=== PATIENT | female | born 2000 | race Caucasian/White ===

== ENCOUNTER → 2022-06-09 19:15 | Observation (INO) ==
[2022-06-09 18:11] LABS: Basophils % 0.3 %; Eosinophils % 0.4 %; Hematocrit 31.2 % (35.3-44.9); Hemoglobin 10.3 g/dL (11.5-15.4); Immature Granulocytes % 1.6 % (0-4); Lymphocytes % 18.1 %; Mean Corpuscular Hemoglobin 29.6 pg (28.0-33.3); Mean Corpuscular Volume 89.7 fL (83.0-100.0); Mean Platelet Volume 9.9 fL (9.4-12.4); Monocytes # 0.6 K/mcL (0.0-1.3); Monocytes % 5.5 %; Platelet Count 166 K/mcL (140-400); Red Blood Count 3.48 M/mcL (3.82-4.97); Red Cell Distribution Width 13.2 % (11.5-14.5); Segmented Neutrophils % 74.1 %; White Blood Count 10.8 K/mcL (4.3-11.1)
[2022-06-09 18:17] LABS: Protein/Creatinine Ratio,Urine 0.21 mg/mg (0.00-0.20)
[2022-06-09 18:29] LABS: Alanine Aminotransferase 16 Units/L (7-52); Aspartate Amino Transferase 17 Units/L (13-39); BUN/Creatinine Ratio 18 (6-26); Blood Urea Nitrogen 11 mg/dL (6-20); Lactate Dehydrogenase 119 Units/L (140-271); Uric Acid 5.5 mg/dL (2.3-7.6); eGFR For African Americans > 60 (> 60); eGFR For Non-African Americans > 60 (> 60)
== END | disposition home or self-care (01) ==
LOC: 1NENULAB
PROVIDERS: ADMIT Student in an Organized Health Care Education/Training Program; ATTEND Student in an Organized Health Care Education/Training Program

== ENCOUNTER 2022-07-10 18:15 | Inpatient (IN) ==
[2022-07-10] MEDS ORDERED: miSOPROStoL 25 MCG TABLET PO PRN (18:43)
[2022-07-10] MEDS ORDERED: Famotidine 20 MG/2 ML VIAL IVP PRN (18:43)
[2022-07-10] MEDS ORDERED: Metoclopramide 10 MG/2 ML VIAL IVP PRN (18:43)
[2022-07-10] MEDS ORDERED: Ondansetron 4 MG/2 ML VIAL IVP PRN (18:43)
[2022-07-10] MEDS ORDERED: *HR* Nalbuphine 10 MG/ML AMPUL IV PRN (18:43)
[2022-07-10] MEDS ORDERED: Naloxone 0.4 MG/ML INJ IVP PRN (18:43)
[2022-07-10] MEDS ORDERED: Azithromycin 500 MG in 0.9 % Sodium Chloride 250 ML IVPB PRN (18:43)
[2022-07-10 19:31] LABS: White Blood Count 10.6 K/mcL (4.3-11.1)
[2022-07-10 19:32] LABS: Basophils # 0.1 K/mcL (0.0-0.2); Basophils % 0.7 %; Eosinophils % 0.3 %; Hematocrit 36.9 % (35.3-44.9); Hemoglobin 11.9 g/dL (11.5-15.4); Lymphocytes # 2.3 K/mcL (0.6-4.6); Lymphocytes % 21.5 %; Mean Corpuscular HGB Conc 32.2 g/dL (31.6-35.5); Mean Corpuscular Hemoglobin 28.3 pg (28.0-33.3); Mean Corpuscular Volume 87.6 fL (83.0-100.0); Monocytes # 0.4 K/mcL (0.0-1.3); Monocytes % 4.1 %; Neutrophils # 7.4 K/mcL (1.6-8.9); Platelet Count 207 K/mcL (140-400); Red Blood Count 4.21 M/mcL (3.82-4.97); Red Cell Distribution Width 13.1 % (11.5-14.5); Segmented Neutrophils % 70.4 %
[2022-07-10 19:53] LABS: Amphetamine Screen,Urine Negative ng/mL (Cutoff=1000); Barbiturate Screen,Urine Negative ng/mL (Cutoff=200); Benzodiazepines Screen,Urine Negative ng/mL (Cutoff=200); Cannabinoid Screen,Urine Negative ng/mL (Cutoff = 50); Cocaine Screen,Urine Negative ng/mL (Cutoff= 300); Opiate Screen,Urine Negative ng/mL (Cutoff=300); Phencyclidine Screen,Urine Negative ng/mL (Cutoff=25)
[2022-07-10 21:01] LABS: Alanine Aminotransferase 21 Units/L (7-52); Aspartate Amino Transferase 19 Units/L (13-39); BUN/Creatinine Ratio 14 (6-26); Blood Urea Nitrogen 8 mg/dL (6-20); Lactate Dehydrogenase 156 Units/L (140-271); Uric Acid 5.8 mg/dL (2.3-7.6)
[2022-07-10] MEDS ORDERED: *HR* FentaNYL (PF) 100 MCG/2 ML VIAL EP ONE (22:25)
[2022-07-10] MEDS ORDERED: EPHEDrine 50 MG/ML VIAL IVP PRN (22:25)
[2022-07-10] MEDS ORDERED: Ropivacaine/PF 0.2% 20 ML VIAL EP ONE (22:25)
[2022-07-10 22:26] LABS: Creatinine,Urine 132 mg/dL
[2022-07-10 23:30] LABS: Bilirubin,Urine Negative (Negative); Blood,Urine Negative (Negative); Clarity,Urine Clear (Clear); Color,Urine Yellow (Yellow); Glucose,Urine (UA) Normal (Normal); Ketones,Urine 20 mg/dL (Negative); Leukocyte Esterase,Urine Negative (Negative); Nitrite,Urine Negative (Negative); PH,Urine 6.5 pH Units (5.0-8.0); Protein,Urine Trace mg/dL (Neg-Trace); Specific Gravity,Urine 1.021 (1.010-1.025); Urobilinogen,Urine Normal (Normal)
[2022-07-10] MEDS: Oxytocin 30 UNIT/503 ML BAG IVC SCH (23:45)
[2022-07-10] MEDS: Ringers Solution, Lactated 1,000 ML IVC SCH (23:45)
[2022-07-11] MEDS: Epidural Premix (fent/bupiv) 110 ML EP SCH ×3 (07:03→19:38)
[2022-07-11] MEDS ORDERED: Penicillin G Potassium 5,000,000 UNIT in 0.9 % Sodium Chloride Mini Bag 100 ML IVPB ONE (08:44)
[2022-07-11] MEDS: Ringers Solution, Lactated 1,000 ML IVC SCH (12:27)
[2022-07-11] MEDS: Penicillin G Potassium 2,500,000 UNIT/105 ML MLS IVPB SCH ×2 (13:15→17:17)
[2022-07-11] MEDS ORDERED: NIFEdipine XL (24 HR) 30 MG TAB.ER.24 PO SCH (18:45)
[2022-07-11] MEDS: Oxytocin 30 UNIT/503 ML BAG IVC SCH (22:33)
[2022-07-11] MEDS ORDERED: Rho Immune Globulin 1,500 UNIT SYRINGE IM PRN (22:51)
[2022-07-11] MEDS ORDERED: Oxytocin 30 UNIT/503 ML BAG IVC SCH (22:51)
[2022-07-11] MEDS ORDERED: Benzocaine/Menthol 56 GM AEROSOL SPRAY TP PRN (22:51)
[2022-07-11] MEDS ORDERED: Lanolin 7 G OINT...G. TP PRN (22:51)
[2022-07-11] MEDS ORDERED: Measles/Mumps/Rubella Vacc 0.5 ML VIAL SQ PRN (22:51)
[2022-07-11] MEDS ORDERED: Ondansetron ODT 4 MG TAB.RAPDIS SL PRN (22:51)
[2022-07-12] MEDS: Ibuprofen 600 MG TABLET PO SCH ×5 (00:32→23:31)
[2022-07-12] MEDS: Acetaminophen 325 MG TABLET PO SCH ×5 (00:33→23:31)
[2022-07-12 06:43] LABS: Basophils % 0.3 %; Eosinophils % 0.3 %; Hematocrit 31.4 % (35.3-44.9); Immature Granulocytes % 1.7 % (0-4); Lymphocytes # 2.3 K/mcL (0.6-4.6); Lymphocytes % 16.2 %; Mean Corpuscular HGB Conc 31.8 g/dL (31.6-35.5); Mean Corpuscular Hemoglobin 28.4 pg (28.0-33.3); Mean Corpuscular Volume 89.2 fL (83.0-100.0); Mean Platelet Volume 9.9 fL (9.4-12.4); Monocytes % 7.3 %; Neutrophils # 10.3 K/mcL (1.6-8.9); Platelet Count 179 K/mcL (140-400); Red Blood Count 3.52 M/mcL (3.82-4.97); Red Cell Distribution Width 13.2 % (11.5-14.5); Segmented Neutrophils % 74.2 %; White Blood Count 13.9 K/mcL (4.3-11.1)
[2022-07-12 07:12] LABS: Alanine Aminotransferase 30 Units/L (7-52); Aspartate Amino Transferase 25 Units/L (13-39); BUN/Creatinine Ratio 11 (6-26); Blood Urea Nitrogen 7 mg/dL (6-20); Lactate Dehydrogenase 147 Units/L (140-271); Uric Acid 6.9 mg/dL (2.3-7.6)
[2022-07-12] MEDS: NIFEdipine XL (24 HR) 30 MG TAB.ER.24 PO SCH (08:42)
[2022-07-12] MEDS: Prenatal Vit/FA 1 EACH TABLET PO SCH (08:43)
[2022-07-13] MEDS: NIFEdipine XL (24 HR) 30 MG TAB.ER.24 PO SCH (08:09)
[2022-07-13] MEDS: Prenatal Vit/FA 1 EACH TABLET PO SCH (08:10)
[2022-07-13] MEDS: Ibuprofen 600 MG TABLET PO SCH (08:10)
[2022-07-13 12:55] VITALS: BP 126/67; PULSE 100; TEMP 98.6; O2SAT 99
== END 2022-07-13 15:17 | disposition home or self-care (01) | DRG 560 ==
LOC: 1NENULAB 18:15 → 1NENUOBS 07-11 23:10
PROVIDERS: ADMIT Registered Nurse; ATTEND Registered Nurse